=== PATIENT | male | born 1980 | race Caucasian/White ===

== ENCOUNTER 2023-12-10 09:24 | Emergency (ER) | payer OTHER, SELFPAY ==
[2023-12-10 09:30] VITALS: BP 146/87; PULSE 64; RESP 18; TEMP 36.5; O2SAT 100; BMI 26.8
--- NOTE | 2023-12-10 10:56 | ED_ITS ---
HPI - Back Pain/Injury General Chief Complaint: Back Pain/Injury Stated Complaint: back pain Time Seen by Provider: 12/10/23 09:33 Source: patient History of Present Illness HPI Narrative: Patient is a 43-year-old male without significant past medical history pres enting today with ongoing back pain. 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 He said that it did get better but not completely resolved however over the last 48 hours he has had increased pain mostly on the left side. He is got some numbness going down the left anterior thigh. No left leg weakness numbness or tingling no change in urinary or bowel incontinence. No fever or chills. Denies any recent injury in the last 48 hours. He is tried heat and stretching as well. Related Data Previous Rx's Medication Instructions Recorded hydrocodone 5 mg-acetaminophen 325 1 tab PO Q6H PRN pain #10 tabs 12/10/23 mg tablet methocarbamol 750 mg tablet 1,500 mg (2 x 750 mg) PO Q8H PRN 12/10/23 muscle spasm #20 tabs prednisone 20 mg tablet 40 mg (2 x 20 mg) PO DAILY #10 tabs 12/10/23 Allergies Allergy/AdvReac Type Severity Reaction Status Date / Time No Known Drug Allergies Allergy Verified 12/10/23 09:30 Patient History Social History Smoking Status: Never smoker Smoking Status: Never smoker alcohol intake frequency: other Substance Use Type: does not use Exam Initial Vital Signs Initial Vital Signs: Vital Signs Temperature 97.7 F 12/10/23 09:30 Pulse Rate 64 12/10/23 09:30 Respiratory Rate 18 12/10/23 09:30 Blood Pressure 146/87 H 12/10/23 09:30 Pulse Oximetry 100 12/10/23 09:30 Oxygen Delivery Method Room Air 12/10/23 09:30 GENERAL: Alert 43-year-old male appears uncomfortable CARDIOVASCULAR: peripheral pulses in tact, cap refill <2 sec RESPIRATORY: No respiratory distress, speaks in full sentences without difficulty BACK: No vertebral tenderness no step-off. Left lower lumbar pain reproducible to palpation sensation lower extremities intact EXTREMITIES: Normal range of motion, no clubbing or edema. Neurovascularly intact NEUROLOGICAL: Cranial nerves II through XII grossly intact. Normal gait and sp eech. SKIN: Warm, dry, no petechiae, no rashes or lesions. Course Orders Ordered: Discontinued Medications Ketorolac Tromethamine (Ketorolac 30 Mg/Ml Vial) 30 mg IM NOW ONE Stop: 12/10/23 11:05 Last Admin: 12/10/23 11:16 Dose: 30 mg Documented By: CATHERINE Vital Signs Vital signs: Vital Signs - 8 hr 12/10/23 09:30 Temperature 97.7 F Pulse Rate 64 Respiratory Rate 18 Blood Pressure 146/87 H Pulse Oximetry 100 Oxygen Delivery Method Room Air MDM - Back Pain/Injury MDM Narrative Medical decision making narrative: Patient 43-year-old male who presents today with ongoing back pain. Injured it a few weeks ago re-injured some neuropathy. No cauda equina symptoms. I see no need for x-ray today but I do encourage him to get an outpatient MRI. 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 I do not recommend heavy lifting or full activity until symptoms have completely resolved However light activity is strongly encourage *Continue to take medications as directed Tylenol 650 mg every 4-6 hours for ffdf-in-lvznlftn pain Motrin 600 mg every 6 hours for dsbx-wy-voyfamoq pain (don't take with prednisone) Prednisone 40 mg once a day for 5 days [place] 1 tablet every 6 hours for muoc-st-uglmpqcu pain Methocarbamol 1500 every 8-12 hours as needed for muscle spasm *Follow up with your primary care provider in 2-3 days or call [phone] *Return to ER if you should have increasing left leg weakness loss of urine or stool or any new, worsening or concerning symptoms CONTROLLED SUBSTANCE DISCHARGE (Narcotoic/benzodiazepine/Flexeril/Phenergan) 1. You have been prescribed narcotic medications, it does have acetaminophen/Tylenol/paracetamol in it, DO NOT TAKE MORE THAN 4,00mg in 24 hours of Tylenol. TRAMADOL DOES NOT CONTAIN TYLENOL 2. Please understand that we cannot provide further refills of narcotics, benzodiazepines or controlled substances through the ED and her pain management will need to be through your provider. 3. While on these medications you cannot drive or operate heavy machinery. 4. You cannot sign legal documents or perform any duties such as this. 5. As long as you're taking opiate pain medications he should also be taking a stool softener such as Colace, Dulcolax, MiraLAX or prune juice, to help avoid constipation. Prescriptions: New hydrocodone-acetaminophen 5-325 mg tablet 1 tab PO Q6H PRN (Reason: pain) Qty: 10 0RF prednisone 20 mg tablet 40 mg PO DAILY Qty: 10 0RF methocarbamol 750 mg tablet 1,500 mg PO Q8H PRN (Reason: muscle spasm) Qty: 20 0RF Stand Alone Forms: Patient Portal/API
[2023-12-10] MEDS: KETOROLAC 30 MG/ML VIAL IM (11:16)
== END 2023-12-10 11:28 | disposition home or self-care (01) ==
PROVIDERS: Emergency Provider Emergency Medicine
DX: S39.012A Strain of muscle, fascia and tendon of lower back, initial encounter (principal)
CPT/HCPCS: 96372; 99283; J1885

== ENCOUNTER 2025-01-10 15:34 | Emergency (ER) | payer OTHER, SELFPAY ==
[2025-01-10 15:45] VITALS: BP 146/78; PULSE 74; RESP 18; TEMP 36.4; O2SAT 96; BMI 26.2
--- NOTE | 2025-01-10 15:56 | ED.SKABFB ---
HPI - Skin/Abscess/Foreign Bdy General Chief complaint: Skin/Abscess/Foreign Body Stated complaint: rash on side of abd stabbing pain Time Seen by Provider: 01/10/25 15:56 Source: patient Limitations: no limitations History of Present Illness HPI narrative: 44-year-old male without any significant past medical history presents to the emergency department from home for evaluation of a rash to the right side of his trunk or region, states that this started proximally 3 days ago, states that it has persisted therefore decided come into the ED for further evaluation treatment. He denies any trauma falls denies any new exposures. Denies any other symptoms at this time. Related Data Previous Rx's ?Medication ?Instructions ?Recorded hydrocodone 5 mg-acetaminophen 325 1 tab PO Q6H PRN pain #10 tabs 12/10/23 mg tablet methocarbamol 750 mg tablet 1,500 mg (2 x 750 mg) PO Q8H PRN 12/10/23 muscle spasm #20 tabs prednisone 20 mg tablet 40 mg (2 x 20 mg) PO DAILY #10 tabs 12/10/23 gabapentin 100 mg capsule 100 mg PO BID PRN Pain 1 week #14 01/10/25 caps prednisone 20 mg tablet 40 mg (2 x 20 mg) PO DAILY 1 week 01/10/25 #14 tabs valacyclovir 1 gram tablet 1,000 mg PO Q8H 1 week #21 tabs 01/10/25 Allergies Allergy/AdvReac Type Severity Reaction Status Date / Time No Known Drug Allergies Allergy Verified 01/10/25 15:45 Review of Systems Review of Systems Narrative: General: Denies fever, chills, weight loss HEENT: Denies headache, eye drainage, eye irritation, head trauma, sore throat, voice change Cardiovascular: Denies any chest pain, palpitations, tachycardia Respiratory: Denies any shortness of breath, cough, wheeze, stridor GI/: Denies any abdominal pain, nausea, vomiting, diarrhea, bright red blood per rectum, melanotic stools, urinary frequency, urinary retention, dysuria, hematuria MSK: Denies any joint pain, muscle pains, swelling Skin: Painful rash to the posterior right thoracic back Neuro: Denies any headache, lightheadedness, dizziness, fainting, weakness Psych: Denies SI/HI Patient History Smoking Status: Never smoker alcohol intake frequency: other Exam Narrative Exam Narrative: General: Cooperative, well-developed, not in acute distress HEENT: Normocephalic, atraumatic, PERRLA, normal sclera, eyelids normal Neck: Active full range of motion, atraumatic Chest: Normal to inspection, negative crepitus, no overlying erythema ecchymosis Respiratory: Normal respiratory effort, not in acute respiratory distress, clear to auscultation bilaterally negative cough, wheeze, tachypnea, rhonchi, rales Cardiology: Regular rate rhythm negative gallop, murmur, rubs GI/: No tenderness to palpation, soft, non rigid, normal to inspection, exam deferred MSK: Full active range of motion in all 4 extremities, atraumatic, no tenderness to palpation of any bony prominences Skin: Patient with skin lesion consistent with shingles to the posterior right back unilateral along the dermatome, no other gross deformities noted Neuro: Alert awake oriented x3, moves all 4 extremities spontaneously, cranial nerves intact, able to answer all questions appropriately follows commands appropriately Psych: Cooperative, negative suicidal or homicidal ideations Initial Vital Signs Initial Vital Signs: Vital Signs Temperature 97.5 F L 01/10/25 15:45 Pulse Rate 74 01/10/25 15:45 Respiratory Rate 18 01/10/25 15:45 Blood Pressure 146/78 H 01/10/25 15:45 Pulse Oximetry 96 01/10/25 15:45 Oxygen Delivery Method Room Air 01/10/25 15:45 Course Vital Signs Vital signs: Vital Signs - 8 hr 01/10/25 15:45 Temperature 97.5 F L Pulse Rate 74 Respiratory Rate 18 Blood Pressure 146/78 H Pulse Oximetry 96 Oxygen Delivery Method Room Air MDM - Skin/Abscess/Foreign Bdy MDM Narrative Medical decision making narrative: Patient is a 44-year-old male presenting for a rash started 3 days ago sudden onset, painful in nature, on my exam it is unilateral to the posterior thoracic back along the dermatome, consistent with zoster. Patient will be treated with antiviral steroids and gabapentin and instructed to follow up with the primary care and Dermatology in outpatient setting, strict return precautions given he verbalized understanding of this and agrees to being discharged home with outpatient follow up Discharge Plan Departure Patient Disposition: Home Clinical Impression: Shingles rash Instructions: DI for Shingles Activity Restrictions/Additional Instructions: Please follow up with the primary care and Dermatology as needed in outpatient setting Please read the discharge instructions sheet carefully and bring all papers to all doctor follow-up visits, as it may contain information that your doctor may want to see. Disease processes change and evolve, if your symptoms worsen or if you develop any new symptoms that are concerning to you please return for evaluation. Your evaluation today does not show any evidence of any life-threatening/serious illnesses requiring admission to the hospital or surgery. Please follow-up with your doctor for re-evaluation in approximately 1 day. Seek immediate medical attention for any worrisome symptoms. *If you do not have a primary care provider please contact the [facility] Resource line at [phone]. They will ask some questions about your medical history and help get you set up with a doctor in the community. Prescriptions: New prednisone 20 mg tablet 40 mg PO DAILY 7 Days Qty: 14 0RF gabapentin 100 mg capsule 100 mg PO BID PRN (Reason: Pain) 7 Days Qty: 14 0RF valacyclovir 1 gram tablet 1,000 mg PO Q8H 7 Days Qty: 21 0RF No Action hydrocodone-acetaminophen 5-325 mg tablet 1 tab PO Q6H PRN (Reason: pain) Qty: 10 0RF prednisone 20 mg tablet 40 mg PO DAILY Qty: 10 0RF methocarbamol 750 mg tablet 1,500 mg PO Q8H PRN (Reason: muscle spasm) Qty: 20 0RF Stand Alone Forms: Patient Portal/API
[2025-01-10] MEDS: GABAPENTIN 100 MG CAPSULE PO (16:13)
== END 2025-01-10 16:20 | disposition home or self-care (01) ==
PROVIDERS: Emergency Provider Student in an Organized Health Care Education/Training Program
DX: B02.9 Zoster without complications (principal)
CPT/HCPCS: 99283